=== PATIENT | male | born 1950 | race Hispanic/Latino ===

== ENCOUNTER 2017-08-14 12:35 | Observation (INO) | payer OTHER ==
[~2017-08-14] VITALS: Ht 167.6 cm; Wt 81.6 kg
[2017-08-14 13:34] LABS: RAPID GROUP A STREP NEGATIVE (NEGATIVE)
[2017-08-14] MEDS ORDERED: SODIUM CHLORIDE 0.9% 1000ML 1,000 ML IV ONE ×2 (14:05→23:44)
[2017-08-14] MEDS ORDERED: BENZONATATE 100 MG CAPSULE PO ONE (14:05)
[2017-08-14] MEDS ORDERED: IBUPROFEN 600 MG TABLET ONE (14:05)
[2017-08-14] MEDS ORDERED: OSELTAMIVIR PHOSPHATE 75 MG CAP ONE (14:06)
[2017-08-14] MEDS ORDERED: IPRATROPIUM/ALBUTEROL SULFATE 3 ML SOLUTION IH ONE (14:12)
[2017-08-14 14:25] LABS: BASOPHILS % (AUTO) 0.6 % (0.0-5.0); HEMATOCRIT 35.9 % (42-54); LYMPHOCYTES % (AUTO) 11.3 % (21.0-51.0); MEAN CORPUSCULAR HEMOGLOBIN 27.9 pg (27.0-33.0); MEAN CORPUSCULAR HGB CONC 33.4 g/dL (32.0-36.0); MEAN CORPUSCULAR VOLUME 83.6 fL (79-99); NEUTROPHILS % (AUTO) 80.1 % (40.0-77.0); PLATELET COUNT (AUTO) 125 K/uL (130-400); RED CELL DISTRIBUTION WIDTH 13.6 % (11.0-15.5)
[2017-08-14 14:34] LABS: POTASSIUM 4.2 mmol/L (3.5-5.1)
[2017-08-14] MEDS ORDERED: INSULIN HUMULIN R 100 UNIT/ML 3ML ONE (18:30)
[2017-08-14] MEDS ORDERED: ACETAMINOPHEN-CODEINE 300/30MG TAB PO PRN (23:00)
[2017-08-14] MEDS ORDERED: ONDANSETRON HCL 4 MG/2 ML VIAL IV PRN (23:00)
[2017-08-14] MEDS ORDERED: GUAIFENESIN-DM 200/20 MG 10 ML PO PRN (23:00)
[2017-08-15] MEDS ORDERED: IPRATROPIUM/ALBUTEROL SULFATE 3 ML SOLUTION IH ONE ×2 (00:51→05:07)
[2017-08-15] MEDS: IPRATROPIUM/ALBUTEROL SULFATE 3 ML SOLUTION IH SCH ×4 (01:03→17:32)
[2017-08-15 07:19] LABS: BASOPHILS % (AUTO) 0.2 % (0.0-5.0); EOSINOPHILS % (AUTO) 0.7 % (0.0-8.0); LYMPHOCYTES % (AUTO) 15.7 % (21.0-51.0); MEAN CORPUSCULAR HEMOGLOBIN 27.9 pg (27.0-33.0); MEAN CORPUSCULAR HGB CONC 33.6 g/dL (32.0-36.0); MEAN CORPUSCULAR VOLUME 82.9 fL (79-99); MONOCYTES % (AUTO) 7.6 % (3.0-13.0); NEUTROPHILS % (AUTO) 75.8 % (40.0-77.0); PLATELET COUNT (AUTO) 110 K/uL (130-400); RED BLOOD CELL COUNT(AUTO) 3.74 MIL/uL (4.50-6.20); RED CELL DISTRIBUTION WIDTH 13.8 % (11.0-15.5); WHITE BLOOD COUNT (AUTO) 13.1 K/uL (4.8-10.8)
[2017-08-15 07:38] LABS: CREATININE 2.4 mg/dL (0.5-1.5); POTASSIUM 3.4 mmol/L (3.5-5.1)
[2017-08-15] MEDS: PANTOPRAZOLE SODIUM 40 MG TABLET.DR PO SCH (08:00)
[2017-08-15] MEDS: OSELTAMIVIR PHOSPHATE 75 MG CAP PO SCH ×2 (08:00→20:57)
[2017-08-15] MEDS ORDERED: PANTOPRAZOLE SODIUM 40 MG TABLET.DR PO ONE (08:08)
[2017-08-15] MEDS ORDERED: OSELTAMIVIR PHOSPHATE 75 MG CAP ONE (08:09)
[2017-08-15] MEDS ORDERED: INSULIN HUMULIN R 100 UNIT/ML 3ML ONE (08:09)
[2017-08-15] MEDS: INSULIN HUMULIN R 100 UNIT/ML 3ML SQ SCH ×4 (08:17→21:02)
[2017-08-15 14:53] VITALS: BP 147/79
[2017-08-15] MEDS: SODIUM CHLORIDE 0.9% 1000ML 1,000 ML IV SCH (16:19)
[2017-08-15] MEDS ORDERED: CLOP75TA32 PO (18:41)
[2017-08-15] MEDS ORDERED: MECL12.585 PO (18:41)
[2017-08-15] MEDS ORDERED: ERGO500014 PO (18:41)
[2017-08-15] MEDS ORDERED: LORA-705 PO (18:41)
[2017-08-15] MEDS ORDERED: FLUO10CA21 PO (18:41)
[2017-08-15] MEDS ORDERED: SIMV40TA5 PO (18:41)
[2017-08-15] MEDS ORDERED: OMEG-53 PO (18:41)
[2017-08-15] MEDS ORDERED: CALC1CAP22 PO (18:41)
[2017-08-15] MEDS ORDERED: LINA5TAB PO (18:41)
[2017-08-15] MEDS ORDERED: ACET-2247 PO (18:41)
[2017-08-15] MEDS ORDERED: LEVO75TA10 PO (18:41)
[2017-08-15] MEDS ORDERED: INSLAN SQ (18:41)
[2017-08-15] MEDS ORDERED: LISI40TA4 PO (18:41)
[2017-08-15] MEDS ORDERED: ASPI-555 PO (18:41)
[2017-08-15] MEDS ORDERED: OMEP20CA10 PO (18:41)
[2017-08-15 19:00] VITALS: BP 150/75
[2017-08-16] VITALS: BP 156/76
[2017-08-16] MEDS: IPRATROPIUM/ALBUTEROL SULFATE 3 ML SOLUTION IH SCH ×3 (01:40→11:45)
[2017-08-16 04:00] VITALS: BP 140/73
[2017-08-16 04:44] LABS: HEMATOCRIT 30.8 % (42-54); MEAN CORPUSCULAR HEMOGLOBIN 29.3 pg (27.0-33.0); MEAN CORPUSCULAR HGB CONC 35.1 g/dL (32.0-36.0); MEAN CORPUSCULAR VOLUME 83.4 fL (79-99); PLATELET COUNT (AUTO) 119 K/uL (130-400); RED CELL DISTRIBUTION WIDTH 13.9 % (11.0-15.5); WHITE BLOOD COUNT (AUTO) 9.5 K/uL (4.8-10.8)
[2017-08-16 04:47] LABS: CREATININE 1.7 mg/dL (0.5-1.5); POTASSIUM 3.8 mmol/L (3.5-5.1)
[2017-08-16] MEDS: SODIUM CHLORIDE 0.9% 1000ML 1,000 ML IV SCH ×2 (05:00→10:33)
[2017-08-16 05:05] LABS: BAND NEUTROPHILS % (MANUAL) 10 % (0-2); BASOPHILS % (MANUAL) 2 % (0-2); EOSINOPHILS % (MANUAL) 5 % (1-6); LYMPHOCYTES % (MANUAL) 16 % (22-44); MAN.DIFF COMMENT-IMPRESSION MANUAL DIFFERENTIAL; MONOCYTES % (MANUAL) 5 % (2-9); PLATELET MORPHOLOGY COMMENT SLIGHTLY DECREASED; SEGMENTED NEUTROPHILS % 62 % (40-70)
[2017-08-16] MEDS: INSULIN HUMULIN R 100 UNIT/ML 3ML SQ SCH ×2 (06:19→12:55)
[2017-08-16 07:40] VITALS: BP 157/93
[2017-08-16] MEDS: PANTOPRAZOLE SODIUM 40 MG TABLET.DR PO SCH (10:29)
[2017-08-16] MEDS: OSELTAMIVIR PHOSPHATE 75 MG CAP PO SCH (10:30)
[2017-08-16 11:26] VITALS: BP 154/85
== END 2017-08-16 13:40 | disposition home or self-care (01) ==
LOC: EDH 12:35 → EDHIP 22:52 → 3DH 08-15 14:45
PROVIDERS: ADMIT Family Medicine; ATTEND Family Medicine
DX: J10.1 Influenza due to other identified influenza virus with other respiratory manifestations (principal); I12.9 Hypertensive chronic kidney disease with stage 1 through stage 4 chronic kidney disease, or unspecified chronic kidney disease; N18.3 Chronic kidney disease, stage 3 (moderate); J20.9 Acute bronchitis, unspecified; E11.22 Type 2 diabetes mellitus with diabetic chronic kidney disease; E11.65 Type 2 diabetes mellitus with hyperglycemia; E03.9 Hypothyroidism, unspecified; D69.6 Thrombocytopenia, unspecified; N17.9 Acute kidney failure, unspecified; Z82.49 Family history of ischemic heart disease and other diseases of the circulatory system; Z83.3 Family history of diabetes mellitus; E86.0 Dehydration
CPT/HCPCS: 36415 ×3; 71046; 80048 ×3; 82948 ×6; 85025 ×3; 87804 ×2; 87880; 94640 ×8; 94664; 96360; 96361 ×2; 96372 ×2; 99285; G0378 ×39; J1815 ×6; J7030 ×4

== ENCOUNTER → 2024-07-05 | Outpatient (CLI) | payer OTHER ==
[~2024-07-05] MED LIST: ACET-2247 PO; AMLO-258 PO; ASCO100031 PO; ASPI-556 PO; CALC1CAP22 PO; CLOP75TA32 PO; ERGO500014 PO; FINA5TAB41 PO; FLUO10CA21 PO; FURO20TA4 PO; INSLAN SQ; LEVO100C4 PO; LEVO75TA10 PO; LINA5TAB PO; LISI40TA9 PO; LORA-699 PO; LOSA50TA64 PO; MECL-226 PO; OMEG-53 PO; OMEP20CA12 PO; PATI16.8 PO; SIMV-46 PO; TAMS-1 PO; TRAZ-187 PO; [UNRECOGNIZED DRUG - CODE] IJ; [UNRECOGNIZED DRUG - OTHER] PO; benafiber PO; iron PO; mvi PO; vitamin d PO; zinc PO
--- NOTE | 2024-07-05 11:44 | HMCIMG ---
US VEIN MAPPING BILATERAL HISTORY: No additional history given. COMPARISON: None TECHNIQUE: Ultrasound upper extremity venous mapping study was performed for hemodialysis access. FINDINGS: Right cephalic vein High upper arm: 4 x 5 millimeter Mid upper arm: 2 x 5 millimeter Low upper arm: 2 x 4 millimeter High forearm: 3 x 6 millimeter Mid forearm: 2 x 3 millimeter Low forearm: 2 x 2 millimeter Right basilic vein Upper arm: 8 x 3 millimeter Lower arm: 9 x 4 millimeter Antecubital fossa: 2 x 2 millimeter Left cephalic vein High upper arm: 4 x 5 millimeter Mid upper arm: 2 x 3 millimeter Low upper arm: 2 x 4 millimeter High forearm: 7 x 5 millimeter Mid forearm: 2 x 1 millimeter Low forearm: By 1 millimeter Left basilic vein Upper arm: 11 x 6 millimeter Lower arm: 2 x 4 millimeter Antecubital fossa: 5 x 11 millimeter IMPRESSION: 1. Ultrasound upper extremity venous mapping study as described above.
== END | disposition home or self-care (01) ==
LOC: RAH 10:29
PROVIDERS: ATTEND Student in an Organized Health Care Education/Training Program
DX: I12.0 Hypertensive chronic kidney disease with stage 5 chronic kidney disease or end stage renal disease (principal); E11.22 Type 2 diabetes mellitus with diabetic chronic kidney disease; N18.6 End stage renal disease
CPT/HCPCS: 93970

== ENCOUNTER 2024-07-15 08:48 | Day surgery (SDC) | payer OTHER ==
--- NOTE | 2024-07-10 11:32 | EKG ---
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
[2024-07-10 11:36] LABS: BASOPHILS # (AUTO) 0.04 K/uL (0.00-0.20); BASOPHILS % (AUTO) 0.5 % (0.0-5.0); EOSINOPHILS # (AUTO) 0.52 K/uL (0.00-0.70); EOSINOPHILS % (AUTO) 6.4 % (0.0-8.0); HEMATOCRIT 31.3 % (42-54); IMMATURE GRANULOCYTE ABSOLUTE 0.02 K/uL (0-1); LYMPHOCYTES # (AUTO) 2.2 K/uL (1.0-4.8); LYMPHOCYTES % (AUTO) 26.7 % (21.0-51.0); MEAN CORPUSCULAR HGB CONC 32.6 g/dL (32.0-36.0); MEAN CORPUSCULAR VOLUME 88.9 fL (79-99); MONOCYTES # (AUTO) 0.4 K/uL (0.1-1.0); MONOCYTES % (AUTO) 4.9 % (3.0-13.0); NEUTROPHILS % (AUTO) 61.3 % (40.0-77.0); PLATELET COUNT (AUTO) 137 K/uL (130-400); RED BLOOD CELL COUNT(AUTO) 3.52 MIL/uL (4.50-6.20); RED CELL DISTRIBUTION WIDTH 13.4 % (11.0-15.5); WHITE BLOOD COUNT (AUTO) 8.2 K/uL (4.8-10.8)
[2024-07-10 11:37] VITALS: BP 113/54; PULSE 84; RESP 17; TEMP 97.6
[2024-07-10 11:47] LABS: CREATININE 5.9 mg/dL (0.5-1.3); POTASSIUM 4.5 mmol/L (3.5-5.1)
[2024-07-10 12:51] LABS: INR 1.03 (0.85-1.15); PROTHROMBIN TIME 11.1 SEC (9.6-11.6)
[2024-07-10 12:52] LABS: PARTIAL THROMBOPLASTIN TIME 24.1 SEC (26.3-35.5)
[2024-07-15] VITALS (12 sets, daily range): BP systolic 98–133; BP diastolic 29–60; PULSE 68–88; RESP 12–16; TEMP 97.1–97.5
[~2024-07-15] VITALS: Ht 167.6 cm; Wt 76.2 kg
[~2024-07-15 08:48] MED LIST changes: -ACET-2247 PO; -CLOP75TA32 PO; -ERGO500014 PO; -LEVO75TA10 PO; -LINA5TAB PO; -LISI40TA9 PO; -LORA-699 PO; -MECL-226 PO
[2024-07-15] MEDS ORDERED: ketaMINE 50MG/ML SYRINGE 50 MG/ML DISP.SYRIN ONE (08:58)
[2024-07-15 10:30] LABS: CREATININE 5.3 mg/dL (0.5-1.3); POTASSIUM 4.4 mmol/L (3.5-5.1)
[2024-07-15] MEDS ORDERED: dexaMETHasone SOD PHOSPHATE 10MG/ML 1ML VIAL ONE (10:33)
[2024-07-15] MEDS ORDERED: GLYCOPYRROLATE 0.2 MG/ML 5 ML VIAL ONE (10:33)
[2024-07-15] MEDS ORDERED: proPOFol 10 MG/ML 20ML VIAL IV ONE (10:33)
[2024-07-15] MEDS ORDERED: LIDOCAINE PF 100MG/5ML (2%) SYRINGE 5ML ONE (10:33)
[2024-07-15] MEDS ORDERED: rocuRONium bROMide 10MG/1ML 5ML VL ONE (10:34)
[2024-07-15] MEDS ORDERED: FENTanyl CITRate PF 50 MCG/1 ML 2ML VIAL ONE (10:34)
[2024-07-15] MEDS ORDERED: NEOSTIGMINE METHYLSULFATE 1MG/ML IV ONE (10:34)
[2024-07-15] MEDS ORDERED: ondanSETRON 4MG INJ ONE (10:34)
[2024-07-15] MEDS ORDERED: SUCCINYLCHOLINE CHLORIDE 20 MG/ML 10 ML VIAL ONE (10:34)
[2024-07-15] MEDS ORDERED: MIDAZOLAM HCL 1 MG/ML 2ML VIAL ONE (10:36)
[2024-07-15] MEDS ORDERED: SUGAMMADEX SODIUM 200 MG/2 ML VIAL IV ONE (10:41)
[2024-07-15] MEDS: 0.9%NACL 1000ML 1,000 ML IV ONE (11:05)
[2024-07-15] MEDS: CLINDAMYCIN IVPB 600MG/50ML 50 ML IV ONE (11:05)
[2024-07-15] MEDS ORDERED: HEParin-NS 1,000 UNIT/500 ML 500 ML IV ONE (11:08)
--- NOTE | 2024-07-21 13:22 | OP ---
Operative Note: DATE OF PROCEDURE: 07/15/24 SURGEON: TRINI FREITAS MD DIRECTOR OF ENTERTAINMENT: [] PREOPERATIVE DIAGNOSIS: End-stage renal disease POSTOPERATIVE DIAGNOSIS: End-stage renal disease PROCEDURE: left upper extremity brachiocephalic fistula creation INDICATIONS: Patient needs access for dialysis ESTIMATED BLOOD LOSS: []cc Devices left in place: None Anesthesia: General endotracheal DESCRIPTION OF PROCEDURE: Patient is brought to the operating room placed on the operating table in a supine position. Once general endotracheal anesthesia is achieved patient's left upper extremity up to the axilla is prepped and draped in sterile fashion. Using ultrasound we identified the cephalic vein and confirmed that it was adequate for fistula creation. We then proceeded to create a transverse incision at the antecubital fossa and dissected down through the skin and subcutaneous tissue to expose the cephalic vein vein. We exposed that for a length of about 6 cm. We then proceeded to expose the brachial artery for a length of about 4 cm and obtained proximal and distal control. We then asked anesthesia to give 5000 units of heparin. I then proceeded to clamp the cephalic vein proximally and distally divided it at the level of the elbow. And suture ligated the distal and end. We then proceeded to to dilate the vein with heparinized saline and ensured that there were no leaks from all the branches were clipped or sutured. I then clamped the brachial artery proximally and distally. I then proceeded to create a end-to-side anastomosis between the brachial artery and the cephalic vein at the antecubital fossa with 6-0 Prolene. I then opened up the clamp to the vein first and that there to be backflow. And then proceeded to open the proximal clamp on the artery to flush out the anastomosis and then open the distal clamp. I then proceeded to suture the anastomosis. We ensured with a Doppler that we had a strong palmar arch pulse at the left hand and ulnar and radial pulses as well. We had a good thrill throughout the fistula. We then close the skin incision in 2 layers with subcutaneous tissue being closed with 3-0 Vicryl in running fashion and the skin was closed with 4-0 Monocryl in running fashion. Dermabond was applied over top and skin dressings were applied over top patient tolerated the procedure well all counts were correct x2 at the end of the procedure. TRINI FREITAS MD Jul 21, 2024 13:22
== END 2024-07-15 14:10 | disposition home or self-care (01) ==
LOC: DAH 08:48
PROVIDERS: ATTEND Student in an Organized Health Care Education/Training Program
DX: I12.0 Hypertensive chronic kidney disease with stage 5 chronic kidney disease or end stage renal disease (principal); E11.22 Type 2 diabetes mellitus with diabetic chronic kidney disease; E11.51 Type 2 diabetes mellitus with diabetic peripheral angiopathy without gangrene; N18.6 End stage renal disease; Z88.1 Allergy status to other antibiotic agents; Z79.01 Long term (current) use of anticoagulants; Z79.4 Long term (current) use of insulin; Z79.899 Other long term (current) drug therapy
CPT/HCPCS: 80048 ×2; 85025; 85610; 85730; 36415 ×2; 93005; 36821; 82948 ×2; A6260; A4663; J3010; J1100; J0330; J7030; J3490 ×4; J2003; J2250; J2704; J2405; J2710; J1644; A4649 ×3; C1713 ×2; A4215; A4222; A4221; A4216; A4223 ×2; A4600